=== PATIENT | female | born 1955 | race Caucasian/White ===

== ENCOUNTER → 2020-07-15 | Outpatient (CLI) | payer OTHER ==
[~2020-07-15] MED LIST: HYDROCODONE/APAP 5MG-325MG TAB ONE; IOPAMIDOL 300 MG/ML 15ML VIAL IT ONE; LIDOCAINE HCL 1% LOCAL INJ 20 ML VIAL ONE
[2020-07-15 10:49] LABS: HEMOGLOBIN 12.2 g/dL (12.0-16.0)
[2020-07-15 11:15] LABS: INR 0.77; PROTHROMBIN TIME 11.3 seconds (11.9-14.5)
[2020-07-15 11:16] LABS: PARTIAL THROMBOPLASTIN TIME 23.2 seconds (23.8-35.5)
== END ==
LOC: DX 10:19
PROVIDERS: ATTEND Orthopaedic Surgery Orthopaedic Surgery of the Spine
DX: M54.16 Radiculopathy, lumbar region (principal)
CPT/HCPCS: 36415; 62304; 72132; 85014; 85049; 85610; 85730; J2001; Q9967